=== PATIENT | female | born 1980 | race Caucasian/White ===

== ENCOUNTER 2019-08-15 13:30 | Inpatient (IN) | payer OTHER ==
[2019-08-15] MEDS ORDERED: ELECTROLYTE-148 SOLN 1,000 ML IV SCH (14:30)
--- NOTE | 2019-08-15 14:37 | HP ---
Past Medical History - Primary Care Physician PCP:: Jorge Angela - Admission Chief Complaint: labor pain History Source: Patient Limitations to Obtaining History: No Limitations - Past Medical History RN NEUROLOGY: No: Alzheimer's, CVA, Dementia, Migraine, Multiple Sclerosis, Peripheral Neuropathy, Parkinson's, Seizure, Syncope, TIA, Vertigo, Other Cardiovascular: No: AFIB, Aneurysm, Aortic Insufficiency, Aortic Stenosis, CAD, CHF, Deep Vein Thrombosis, HTN, Hyperlipdemia, IL, Mitral Insufficiency, Mitral Stenosis, Murmur, Pulmonary Hypertension, Other Pulmonary: No: Asthma, Bronchitis, Cancer, COPD, O2 Dependent, Pneumonia, Previously Intubated, Pulmonary Embolus, Pulmonary Fibrosis, Sleep Apnea, Other Gastrointestinal: No: Ascites, Cancer, Constipation, Crohn's Disease, Diverticulitis, Diverticulosis, Esophageal Varices, Gastritis, GERD, GI Bleed, Hemorrhoids, Hiatal Hernia, Inflamatory Bowel Disease, Irritable Bowel Disease, Pancreatitis, Peptic Ulcer Disease, Ulcerative Colitis, Other Hepatobiliary: No: Cirrhosis, Cholelithiasis, Cholecystitis, Choledocholithiasis , Hepatitis A, Hepatitis B, Hepatitis C, Other Renal/: No: Renal Failure, Renal Inusuff, BPH, Cancer, Hematuria, Hemodialysis , Neurogenic Bladder, Renal Calculi, UTI, Other Reproductive: No: Ectopic , Endometriosis, Fibroids, PID, Polycystic Ovary Syndrome, Postmenopausal, Other Heme/Onc: No: Anemia, B12 Deficiency, Bleeding Disorder, Cancer, Current Chemotherapy, Current Radiation Therapy, Hemochromatosis, Hypercoaguable State, Myeloproliferative Synd, Sickle Cell Disease, Sickle Cell Trait, Thrombocytopenia, Other Infectious Disease: No: AIDS, C-Diff, Herpes Zoster, HIV, MRSA, STD's, Tuberculosis, VREF, Other Psych: No: Addictions, Anxiety, Bipolar, Depression, Panic, Psychosis, Schizophrenia, Other Musculoskeletal: No: Bursitis, Chronic low back pain, Hemiparesis, Hemiplegia, Osteoarthritis, Paraplegia, Other Rheumatology: No: Fibromyalgia, Gout, Lupus, Rheumatoid Arthritis, Sarcoidosis, Vasculitis, Other ENT: No: Allergic Rhinitis, Sinusitis, Other Endocrine: No: Aneudy's Disease, Burrton's Disease, Diabetes Insipidus, Diabetes Mellitus, Hyperparathyroidism, Hyperthyroidism, Hypothyroidism, Osteopenia, SIADH, Other Dermatology: No: Basal Cell, Cellulitis, Eczema, Melanoma, Psoriasis, Squamous Cell, Other - Past Surgical History Past Surgical History: No: None, AAA Repair, AICD, Amputation, Appendectomy, Arthrosocopy, AV Fistula/Graft, Bariatric Surgery, Breast Biopsy, Bypass, CABG, Carotid Endarterectomy, Cataract Removal, Cholecystectomy, Colectomy, Colonoscopy, Colostomy, Craniotomy, , Cystectomy, Hernia Repair, Hysterectomy, Ileal Conduit, Ileosotomy, Joint Replacement, Kidney Transplant, Laminectomy, Liver Transplant, Mastectomy, Nephrectomy, Oopherectomy, Orchiectomy, Permanent Pacemaker, Prostatectomy, Splenectomy, Stent, Thoracotomy , TURP, Tonsillectomy, Tubal Ligation, Upper Endoscopy, Valve Replacement, Vasectomy, Vein Stripping/Ligation Hx Myomectomy: No Hx Transabdominal Cerclage: No - Smoking History Smoking history: Former smoker Have you smoked in the past 12 months: No - Alcohol/Substance Use Hx Alcohol Use: No History of Substance Use: reports: None - Social History History of Recent Travel: No Home Medications - Allergies Allergies/Adverse Reactions: Allergies Allergy/AdvReac Type Severity Reaction Status Date / Time No Known Allergies Allergy Verified 08/15/19 14:31 - Home Medications Home Medications: Ambulatory Orders Vitamins (Sjr) - 1 tab PO DAILY 11/11/14 Family Medical History Family History: Unremarkable Review of Systems - Review of Systems Constitutional: reports: No Symptoms Eyes: reports: No Symptoms HENT: reports: No Symptoms Neck: reports: No Symptoms Cardiovascular: reports: No Symptoms Respiratory: reports: No Symptoms Gastrointestinal: reports: No Symptoms, Other (hemorrhoids) Genitourinary: reports: No Symptoms Breasts: reports: No Symptoms Reported Musculoskeletal: reports: No Symptoms Integumentary: reports: No Symptoms Neurological: reports: No Symptoms Endocrine: reports: No Symptoms Hematology/Lymphatic: reports: No Symptoms Psychiatric: reports: No Symptoms Physical Exam - Maternity Constitutional: Yes: No Distress HENT: Yes: Atraumatic Neck: Yes: Supple Cardiovascular: Yes: Regular Rate and Rhythm Breast(s): Yes: Other (deferred) - Abdominal Exam/OB Number of Fetuses: Single Presentation: Vertex Contractions: Yes Regularity: Regular Monitor Mode: External Heart Rate (range): 125 Category: I Accelerations: Uniform Decelerations: None - Vaginal Exam/OB Vaginal Bleediing: No Speculum Exam: No Dilatation (cm): 6 Effacement (%): 80 Amniotic Membrane Status: Intact Station: -1 - Physical Exam Musculoskeletal: Yes: WNL Extremities: Yes: WNL Edema: Yes Edema: LLE: Trace, RLE: Trace Integumentary: Yes: WNL ...Motor Strength: WNL Psychiatric: Yes: Alert, Oriented Imaging - Results Ultrasound: Report Reviewed Assessment/Plan 39 y/o @ 40.2wks, active labor, GBS negative, AMA and negative testing, declined pain control -Expectant management
[2019-08-15 15:00] VITALS: BMI 31.1
[2019-08-15] MEDS ORDERED: OXYTOCIN 20 UNITS in 0.9% NS 20 UNIT/1,000 ML INFUS.BAG IV ONE ×2 (15:29→19:23)
[2019-08-15 15:34] LABS: BASO % 0.2 % (0-2.0); EOS % 0.1 % (0-4.5); HEMOGLOBIN 11.6 GM/dL (10.7-15.3); LYMPH % 16.3 % (8-40); MCH 30.6 pg (25.7-33.7); MCHC 33.2 g/dl (32.0-36.0); MEAN CELL VOLUME 92.3 fl (80-96); MEAN PLT VOLUME 10.2 fl (7.5-11.1); MONO % 4.6 % (3.8-10.2); NEUT % 78.8 % (42.8-82.8); PLATELET COUNT 133 K/MM3 (134-434); RBC 3.79 M/mm3 (3.60-5.2); RDW 15.6 % (11.6-15.6); WHITE BLOOD COUNT 6.6 K/mm3 (4.0-10.0)
[2019-08-15 15:57] LABS: BLOOD UREA NITROGEN 6.7 mg/dL (7-18); CALCIUM 8.5 mg/dL (8.5-10.1); CREATININE 0.6 mg/dL (0.55-1.3); POTASSIUM 3.5 mmol/L (3.5-5.1)
[2019-08-15] MEDS ORDERED: LIDOCAINE HCL 1% PRESERVATIVE FREE - 30ML VIAL ONE (16:04)
[2019-08-15 16:27] LABS: INR 0.93 (0.83-1.09)
[2019-08-15 16:29] LABS: ACTIVATED PTT 29.9 SECONDS (25.2-36.5)
[2019-08-15] MEDS ORDERED: WITCH HAZEL 50% (TUCKS) 40 PAD/JAR PAD TP PRN (16:29)
[2019-08-15] MEDS ORDERED: BISACODYL 10 MG SUPP.RECT RC PRN (16:29)
[2019-08-15] MEDS ORDERED: BENZOCAINE 20% 57 GM BOTTLE TP PRN (16:29)
[2019-08-15] MEDS ORDERED: BENZOCAINE 28 GM HEMORRHOIDAL OINTMENT TP PRN (16:29)
[2019-08-15] MEDS ORDERED: D5W-LR W/ 20 UNITS OXYTOCIN 20 UNIT/1,000 ML INFUS.BAG IV SCH (16:30)
[2019-08-15] MEDS ORDERED: MISOPROSTOL 200 MCG TABLET NR ONE (16:32)
--- NOTE | 2019-08-15 16:40 | PN ---
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 Shoulders delivered w/o difficulty followed by the rest of the body. Cord clamped and cut after delay and placed onto patient's chest. Placenta delivered spontaneously and intact, 3VC. Exam revealed 1st degree perineal laceration repaired in standard fashion with 3.0 polysorb. Excellent hemostasis noted and fundus is firm. 1000mcg misoprostol administered CO prophylactically. Instrument /sponge count correct x 2.
[2019-08-15] MEDS ORDERED: OXYTOCIN 20 UNITS in 0.9% NS 20 UNIT/1,000 ML INFUS.BAG IV SCH (17:15)
[2019-08-15] MEDS: ACETAMINOPHEN 325 MG TABLET (FP) PO PRN (22:33)
[2019-08-15] MEDS: IBUPROFEN 600 MG TABLET (FP) PO PRN (22:33)
[2019-08-16 06:38] LABS: BASO % 0.2 % (0-2.0); EOS % 0.6 % (0-4.5); HEMOGLOBIN 10.1 GM/dL (10.7-15.3); LYMPH % 32.9 % (8-40); MCH 31.3 pg (25.7-33.7); MCHC 33.6 g/dl (32.0-36.0); MEAN CELL VOLUME 93.1 fl (80-96); MONO % 9.4 % (3.8-10.2); NEUT % 56.9 % (42.8-82.8); PLATELET COUNT 118 K/MM3 (134-434); RBC 3.22 M/mm3 (3.60-5.2); RDW 15.9 % (11.6-15.6); WHITE BLOOD COUNT 5.7 K/mm3 (4.0-10.0)
--- NOTE | 2019-08-16 08:23 | PN ---
Post Progress Note - Subjective Subjective: ambulsating, tolerating po, lochia decreased, passing flatus, breast feeding Post Day: 1 Type of Delivery: Vital Signs: Vital Signs Temperature 97.9 F 08/16/19 05:56 Pulse Rate 75 08/16/19 05:56 Respiratory Rate 20 08/16/19 05:56 Blood Pressure 115/66 08/16/19 05:56 O2 Sat by Pulse Oximetry (%) Breast Exam: Yes: Other (deferred) Uterus: Yes: Fundus Firm Abdomen/GI: Yes: Abdomen soft Lochia, amount: Small Extremities: Yes: Calf tenderness (left ) Activity: Ambulating - Labs Labs: CBC WBC 5.7 K/mm3 (4.0-10.0) 08/16/19 06:15 RBC 3.22 M/mm3 (3.60-5.2) L 08/16/19 06:15 Hgb 10.1 GM/dL (10.7-15.3) L 08/16/19 06:15 Hct 30.0 % (32.4-45.2) L 08/16/19 06:15 MCV 93.1 fl (80-96) 08/16/19 06:15 MCH 31.3 pg (25.7-33.7) 08/16/19 06:15 MCHC 33.6 g/dl (32.0-36.0) 08/16/19 06:15 RDW 15.9 % (11.6-15.6) H 08/16/19 06:15 Plt Count 118 K/MM3 (134-434) L 08/16/19 06:15 MPV 10.0 fl (7.5-11.1) 08/16/19 06:15 Absolute Neuts (auto) 3.3 K/mm3 (1.5-8.0) 08/16/19 06:15 Neutrophils % 56.9 % (42.8-82.8) D 08/16/19 06:15 Lymphocytes % 32.9 % (8-40) D 08/16/19 06:15 Monocytes % 9.4 % (3.8-10.2) D 08/16/19 06:15 Eosinophils % 0.6 % (0-4.5) D 08/16/19 06:15 Basophils % 0.2 % (0-2.0) 08/16/19 06:15 Nucleated RBC % 0 % (0-0) 08/16/19 06:15 Assessment/Plan ppd #1 in stable condition and left calf tenderness. _continue pp care -LE doppler -Anticipate d/c home tomorrow
[2019-08-16] MEDS: IBUPROFEN 600 MG TABLET (FP) PO PRN ×2 (09:52→16:59)
[2019-08-16] MEDS: ACETAMINOPHEN 325 MG TABLET (FP) PO PRN ×2 (09:53→16:59)
[2019-08-16] MEDS: PHENYLEPHRINE HCL/COCOA BUTTER SUPPOSITORY RC SCH (12:27)
[2019-08-16] MEDS ORDERED: SENNOSIDES/DOCUSATE COMBO (SENNA PLUS) TABLET (UD) PO PRN (22:00)
--- NOTE | 2019-08-17 08:04 | DS ---
Physical Examination Vital Signs: Vital Signs Temperature 98.0 F 08/16/19 21:53 Pulse Rate 70 08/16/19 21:53 Respiratory Rate 20 08/16/19 21:53 Blood Pressure 122/74 08/16/19 21:53 O2 Sat by Pulse Oximetry (%) Constitutional: Yes: Well Nourished, No Distress, Calm Eyes: Yes: WNL, Conjunctiva Clear, EOM Intact HENT: Yes: WNL, Atraumatic, Normocephalic Neck: Yes: WNL, Supple, Trachea Midline Cardiovascular: Yes: WNL, Regular Rate and Rhythm Respiratory: Yes: WNL, Regular, CTA Bilaterally Gastrointestinal: Yes: WNL, Normal Bowel Sounds Musculoskeletal: Yes: WNL Extremities: Yes: WNL Edema: No Integumentary: Yes: WNL Neurological: Yes: WNL, Alert, Oriented ...Motor Strength: WNL Psychiatric: Yes: WNL Labs: CBC, BMP 08/16/19 06:15 08/15/19 15:08 Discharge Summary Problems reviewed: Yes Reason For Visit: LABOR Procedures: Principal: Hospital Course: Patient presented in active labor She had an uncomplicated She met all milestones She was discharged home on PPD#2 Condition: Stable - Instructions Diet, Activity, Other Instructions: Return to regular diet and activity as tolerated. Please follow up in 6-8 weeks for visit. Call or present to health center with any medical problems. Referrals: Jorge Angela MD [Staff Physician] - Disposition: HOME - Home Medications Comprehensive Discharge Medication List: Ambulatory Orders Vitamins (Sjr) - 1 tab PO DAILY 11/11/14 Acetaminophen [Tylenol] 650 mg PO Q6H PRN #30 capsule MDD 5 08/16/19 Ibuprofen 600 mg PO Q6H PRN #30 tablet 08/16/19
[2019-08-17] MEDS: ACETAMINOPHEN 325 MG TABLET (FP) PO PRN (09:52)
[2019-08-17] MEDS: PHENYLEPHRINE HCL/COCOA BUTTER SUPPOSITORY RC SCH (09:53)
[2019-08-17] MEDS: IBUPROFEN 600 MG TABLET (FP) PO PRN (09:53)
[2019-08-17 11:00] VITALS: BP 127/78; PULSE 80; TEMP 98.3
== END 2019-08-17 15:00 | disposition home or self-care (01) | DRG 560 ==
LOC: UNDOADMIN 13:30 → JLDR 13:30 → J3W 20:37
PROVIDERS: ADMIT Student in an Organized Health Care Education/Training Program; ATTEND Student in an Organized Health Care Education/Training Program
PROC: 0HQ9XZZ Repair Perineum Skin, External Approach (ICD-10-PCS; principal; 2019-08-15)
PROC: 10E0XZZ Delivery of Products of Conception, External Approach (ICD-10-PCS; 2019-08-15)
DX: O48.0 Post-term pregnancy (principal); O70.0 First degree perineal laceration during delivery; Z3A.40 40 weeks gestation of pregnancy; Z37.0 Single live birth
CPT/HCPCS: 36415; 59409; 80048; 85025; 85610; 85730; 86593; 86850; 86900; 86901; 93971-TC